=== PATIENT | male | born 1940 | race Caucasian/White ===

== ENCOUNTER 2018-03-27 09:52 | Day surgery (SDC) | payer OTHER ==
[~2018-03-27] VITALS: Ht 182.9 cm; Wt 134.1 kg
[~2018-03-27 09:52] MED LIST: AMLO5TAB96 PO; ASPI325T PO; ATEN-102 PO; CYCL1PAK PO; DYAZ PO; HYDR7.5T32 PO; LEVO200T38 PO; PRIM50TA PO; SIMV40TA PO
[2018-03-27] MEDS ORDERED: ATOR20TA15 PO (10:17)
[2018-03-27] MEDS ORDERED: AMLO5TAB2 PO (10:17)
[2018-03-27] MEDS ORDERED: CYAN100025 SL (10:17)
[2018-03-27] MEDS ORDERED: TRIA37.5 (10:17)
[2018-03-27] MEDS ORDERED: PRIM50TA5 PO (10:17)
[2018-03-27] MEDS ORDERED: LOSA50TA PO (10:17)
[2018-03-27] MEDS ORDERED: KETO2CRE TOPICAL (10:17)
[2018-03-27] MEDS ORDERED: CLIN1GEL TOPICAL (10:17)
[2018-03-27] MEDS ORDERED: ASPI-183 PO (10:17)
[2018-03-27] MEDS ORDERED: LEVO112T2 PO (10:17)
[2018-03-27] MEDS ORDERED: ATEN50TA PO (10:17)
[2018-03-27 10:38] VITALS: BP 146/70; PULSE 46; PULSE 76; RESP 18; TEMP 97.9; O2SAT 96
[2018-03-27 10:44] LABS: AUTOMATED NEUTROPHIL # 4.7 TH/MM3 (1.8-7.7); BASOPHIL % 0.5 % (0.0-2.0); EOSINOPHIL # 0.1 TH/MM3 (0-0.4); EOSINOPHIL % 1.6 % (0.0-4.0); HEMATOCRIT 38.5 % (39.0-51.0); HEMOGLOBIN 13.1 GM/DL (13.0-17.0); LYMPH % 14.7 % (9.0-44.0); MEAN CELL VOLUME 91.6 FL (80.0-100.0); MEAN CORPUSCULAR HEMOGLOBIN 31.1 PG (27.0-34.0); MEAN CORPUSCULAR HGB CONC 33.9 % (32.0-36.0); MEAN PLATELET VOLUME 10.1 FL (7.0-11.0); MONO % 13.5 % (0.0-8.0); MONOCYTE # 0.9 TH/MM3 (0-0.9); NEUT % 69.7 % (16.0-70.0); PLATELET COUNT 81 TH/MM3 (150-450); RED BLOOD COUNT 4.21 MIL/MM3 (4.50-5.90); RED CELL DISTRIBUTION WIDTH 14.4 % (11.6-17.2); WHITE BLOOD COUNT 6.7 TH/MM3 (4.0-11.0)
[2018-03-27] MEDS ORDERED: SODIUM CHLOR 0.9% 1000 ML IV SCH (11:00)
[2018-03-27 11:26] LABS: OVALOCYTES 1+ (NORMAL)
[2018-03-27] MEDS ORDERED: MIDAZOLAM HCL 2 MG/2 ML VIAL ONE (12:33)
--- NOTE | 2018-03-27 13:11 | PD.RAD ---
Post CT Procedure Prog Note Pre Procedure Diagnosis: (1) Thrombocytosis Post Procedure Diagnosis: (1) Thrombocytosis Procedure Date: Mar 27, 2018 Supervising Radiologist: Sonny Grover Estimated blood loss: minimal. Anesthesia: Conscious Sedation Plan of Activity Patient to Unit: ROPU Patient Condition: Good See PACS Report for procedural detail/treatment Biopsy Imaging Guidance: CT Side: Left Biopsy Procedure: Bone Marrow Site: posterior iliac bone. Specimen: Core Biopsy Plan to ROPU then discharge in 2 hours. Sonny Grover MD Mar 27, 2018 13:11
[2018-03-27 13:15] VITALS: BP 131/78; PULSE 46; RESP 16; TEMP 97.8; O2SAT 96
[2018-03-27 13:30] VITALS: BP 127/59; PULSE 52; RESP 16; O2SAT 96
[2018-03-27 14:00] VITALS: BP 129/61; PULSE 55; RESP 16; O2SAT 96
[2018-03-27 14:30] VITALS: BP 125/63; PULSE 53; RESP 16; O2SAT 96
--- NOTE | 2018-03-27 14:39 | RADRPT ---
EXAM DATE: 03/27/2018 1:10 PM EDT AGE/SEX: 77 years / Male INDICATIONS: Thrombocytosis. CLINICAL DATA: This is the patient's initial encounter. Patient reports that signs and symptoms have been present for 1 day and indicates a pain score of 0/10. MEDICAL/SURGICAL HISTORY: Cardiovascular disease. None. COMPARISON: [facility], CT ABDOMEN AND PELVIS W/O CONTRAST, 09/09/2017. . BIOPSY SITE: Left pelvic MEDICATION(S): 1.5mg midazolam (Versed) IV 75mcg fentanyl (Sublimaze) IV DEVICE(S): 11 gauge Bone marrow biopsy needle One . . PROCEDURE: CT guided Left pelvic biopsy Prior to the procedure informed consent was obtained. Any appropriate prior imaging studies were rev iewed. Using automated exposure control and adjustment of the mA and/or kV according to patient size , radiation dose was kept as low as reasonably achievable to obtain optimal diagnostic quality images . DICOM format image data is available electronically for review and comparison. The site was prepped in a sterile fashion. Full sterile technique was used, including cap, mask, shilpi rile gloves and gown and a large sterile sheet. Hand hygiene and 2% chlorhexidine and/or betadine/al cohol prep was utilized per protocol for cutaneous antisepsis. The skin and subcutaneous tissues wer e infiltrated with local anesthetic solution. With CT guidance the left posterior iliac bone was localized. Biopsy was performed using the prescrib ed needle as above. Following biopsy marrow aspiration was performed with repeat puncture. Adequate hemostasis was obtained with compression at the puncture site. Conscious sedation was performed with the prescribed dosages and duration as above in the presence of an independent trained radiology nurse to assist in the monitoring of the patient. EKG and oximetry remained stable throughout the procedure. The patient tolerated the procedure well and there were no complications. The patient was sent to Radiology Outpatient Unit in stable condition. CONCLUSION: 1. Uncomplicated CT guided bone marrow aspirate. 2. Uncomplicated CT guided bone marrow biopsy. Electronically signed by: Sonny Grover MD 03/27/2018 1:54 PM EDT
[2018-03-27 15:00] VITALS: BP 128/71; PULSE 58; RESP 16; O2SAT 96
== END 2018-03-27 15:10 | disposition home or self-care (01) ==
LOC: HRAD 09:52 → HRIP 09:59 → HRAD 15:10
PROVIDERS: ATTEND Internal Medicine Hematology & Oncology
DX: D47.3 Essential (hemorrhagic) thrombocythemia (principal); I25.10 Atherosclerotic heart disease of native coronary artery without angina pectoris; I12.9 Hypertensive chronic kidney disease with stage 1 through stage 4 chronic kidney disease, or unspecified chronic kidney disease; N18.9 Chronic kidney disease, unspecified; D63.1 Anemia in chronic kidney disease; J44.9 Chronic obstructive pulmonary disease, unspecified; M19.90 Unspecified osteoarthritis, unspecified site; Z01.818 Encounter for other preprocedural examination
CPT/HCPCS: 38222; 77012; 85025; 85097; 88184; 88185; 88237; 88264; 88280; 88305; 88311; 88313; 99152; 99153; C1830; J2250; J3010; J7030

== ENCOUNTER → 2018-04-08 | Outpatient (CLI) | payer OTHER ==
[~2018-04-08] MED LIST changes: +AMLO5TAB2 PO; -AMLO5TAB96 PO; +ASPI-183 PO; -ASPI325T PO; -ATEN-102 PO; +ATEN50TA PO; +ATOR20TA15 PO; +CLIN1GEL TOPICAL; +CYAN100025 SL; -CYCL1PAK PO; -DYAZ PO; -HYDR7.5T32 PO; +KETO2CRE TOPICAL; +LEVO112T2 PO; -LEVO200T38 PO; +LOSA50TA PO; -PRIM50TA PO; +PRIM50TA5 PO; -SIMV40TA PO; +TRIA37.5
--- NOTE | 2018-04-10 09:21 | RSPPFT ---
DATE OF PROCEDURE: 04/08/18 COMMENTS: Spirometry shows FVC of 2.2 at 53% of predicted, FEV1 of 1.4 at 65%, FEV1/FVC ratio is decreased. Flow is decreased at FEF 25, FEF 50, FEF 75 and FEF 25-75. There is no significant response after bronchodilator treatment. Lung volumes show residual volume is normal. TLC is decreased. Diffusion capacity is normal. Flow volume loop indicates an obstructive pattern. Room air arterial blood gases show pH of 7.37, PCO2 of 44, PO2 of 83, BiCarb of 25 , Saturation at 93%. 6-minute walk test shows no de-saturation. IMPRESSION: 1. Moderately severe COPD. 2. No response after bronchodilator treatment. 3. Mildly decreased lung volumes indicating additional mild restrictive lung disease. 4. Normal diffusion capacity. 5. Blood gases show normal oxygenation. 6. 6-minute walk test shows no de-saturation.
== END ==
LOC: HRSP 09:28
PROVIDERS: ATTEND Specialist
DX: J44.9 Chronic obstructive pulmonary disease, unspecified (principal)
CPT/HCPCS: 36600; 82805; 94060; 94618; 94726; 94729